=== PATIENT | male | born 1990 | race Caucasian/White ===

== ENCOUNTER 2018-08-16 23:56 | Emergency (ER) | payer MEDICAID ==
[~2018-08-16] VITALS: Ht 185.4 cm; Wt 77.1 kg
--- NOTE | 2018-08-16 23:57 | NUR ---
ED Nurse Note: Received report. Pt brought in by [employer] from home, called by friends stating pt is lethargic and hard to arouse and needing assistance to walk. No crime committed. No hold in place.
[2018-08-17] VITALS: BP 135/88
[2018-08-17] MEDS: Naloxone 1mg/ml 2ml IVP ONE (00:24)
[2018-08-17 00:30] VITALS: BP 133/76
--- NOTE | 2018-08-17 00:30 | NUR ---
ED Nurse Note: Pt po [facility] and immediately awoken with pupils dilated size 5mm and ST at HR of 120. He started shivering and denying taking any meds. Labs and urine sent; awaiting results. MD aware of pt's response.
[2018-08-17 00:33] LABS: APPEARANCE,URINE CLEAR; BILIRUBIN, URINE NEGATIVE (NEGATIVE); COLOR,URINE PALE YELLOW; GLUCOSE, URINE (UA) NEGATIVE (NEGATIVE); KETONES,URINE 1+ (NEGATIVE); LEUKOCYTE ESTERASE ,URINE NEGATIVE (NEGATIVE); NITRITE,URINE NEGATIVE (NEGATIVE); PH,URINE 6 (4.5-8.0); UROBILINOGEN,URINE NORMAL MG/DL (0.0-1.0)
[2018-08-17 00:36] LABS: PROTEIN,URINE NEGATIVE (NEGATIVE)
[2018-08-17 00:47] LABS: BASOPHILS % (AUTO) 1.6 % (0.0-2.0); EOSINOPHILS % (AUTO) 1.1 % (0.0-3.0); HEMATOCRIT 49.9 % (42.0-52.0); HEMOGLOBIN 16.6 G/DL (14.2-18.0); LYMPHOCYTES % (AUTO) 23.1 % (20.0-45.0); MEAN CORPUSCULAR VOLUME 90 FL (80-99); MONOCYTES % (AUTO) 9.9 % (1.0-10.0); NEUTROPHILS % (AUTO) 64.3 % (45.0-75.0); PLATELET COUNT 263 K/UL (150-450); RED BLOOD COUNT 5.52 M/UL (4.70-6.10); RED CELL DISTRIBUTION WIDTH 11.6 % (11.6-14.8)
[2018-08-17 00:56] LABS: ANION GAP 8 mmol/L (5-15); BLOOD UREA NITROGEN 13 mg/dL (7-18); CALCIUM 9.3 MG/DL (8.5-10.1); CARBON DIOXIDE 32 MMOL/L (21-32); CHLORIDE 102 MMOL/L (98-107); CREATININE 1.4 MG/DL (0.55-1.30); POTASSIUM 3.7 MMOL/L (3.5-5.1); SODIUM 142 MMOL/L (136-145)
[2018-08-17 01:00] VITALS: BP 133/98
[2018-08-17 01:00] LABS: ALANINE AMINOTRANSFERASE 16 U/L (12-78); ALBUMIN 4.4 G/DL (3.4-5.0); ALBUMIN/GLOBULIN RATIO 1.1 (1.0-2.7); ALKALINE PHOSPHATASE 75 U/L (46-116); ASPARTATE AMINO TRANSFERASE 15 U/L (15-37); BILIRUBIN,TOTAL 0.2 MG/DL (0.2-1.0)
--- NOTE | 2018-08-17 01:03 | Emergency Room Report ---
History of Present Illness General Chief Complaint: Altered Level of Consciousness Source: EMS Present Illness HPI Is an approximately 25-year-old male initially came in as a Joshua Weir. He presents with chief complaint of overdose. Friend called 911 because he was unresponsive. Per EMS, he was reported to have overdose on benzodiazepine and marijuana. He was lethargic and unable to give any history. EMS did not give him any medication. Per EMS, friend said there was no suicidal attempt. No other history can be obtained from this patient because she is not responsive. Allergies: Coded Allergies: UNABLE TO ASSESS (Unverified , 08/16/18) Patient History Past Medical History: see triage record, old chart reviewed Past Surgical History: unable to obtain Social History: Reports: drug use Immunizations: other Reviewed Nursing Documentation: PMH: Agreed; PSxH: Agreed Nursing Documentation-PMH Past Medical History: No Stated History Review of Systems All Other Systems: limited - Secondary to altered mental status Physical Exam Vital Signs Date Time Temp Pulse Resp B/P (MAP) Pulse Ox O2 Delivery O2 Flow Rate FiO2 08/16/18 23:50 98.1 102 12 134/94 98 Room Air normal Sp02 EP Interpretation: reviewed, normal General Appearance: well appearing, no apparent distress, Stupor - Sonorous respiration Head: normocephalic, atraumatic Eyes: bilateral eye PERRL, bilateral eye EOMI, bilateral eye other - Pupil for millimeter and reactive ENT: normal pharynx Neck: full range of motion, supple, no meningismus Respiratory: chest non-tender, lungs clear, normal breath sounds Cardiovascular #1: regular rate, rhythm, no murmur Gastrointestinal: normal bowel sounds, non tender, no mass, no organomegaly, no bruit, non-distended Musculoskeletal: back normal, normal range of motion Neurologic: grossly normal Psychiatric: mood/affect normal Skin: warm/dry Medical Decision Making Diagnostic Impression: Primary Impression: Altered level of consciousness Additional Impression: Substance abuse ER Course Patient with drug overdose. Drug screen positive for amphetamine and marijuana. Negative opiate but he responded quickly to Narcan. Suspect the has some type of opiate that's not on our drug screen. We'll observe until clinical sobriety. No trauma to warrant x-ray or CT scan. Labs unremarkable. Last Vital Signs Date Time Temp Pulse Resp B/P (MAP) Pulse Ox O2 Delivery O2 Flow Rate FiO2 08/16/18 23:50 98.1 102 12 134/94 98 Room Air Status: improved Disposition: HOME, SELF-CARE Condition: Stable Scripts Unable to Obtain Active Prescriptions or Reported Meds Referrals: [facility],REFERR[facility] (PCP) Additional Instructions: Abstain from drug and alcohol. Follow-up in rehabilitation within a week. Return if worse. Ba Barroso MD Aug 17, 2018 01:03
--- NOTE | 2018-08-17 01:35 | NUR ---
ED Nurse Note: Pt in bed alseep snoring. Awoken when telling pt to starighten arm for IVF intake. He cooperated, then went back to sleep. No distress noted. VSS.
--- NOTE | 2018-08-17 02:45 | NUR ---
ED Nurse Note: pt sleeping on gurney, not in acute distress. pt still hooked on monitor with vital sign within normal limits. will continue to monitor.
[2018-08-17 02:46] VITALS: BP 127/77
[2018-08-17 05:30] VITALS: BP 105/72
[2018-08-17 05:58] VITALS: BP 105/72
--- NOTE | 2018-08-17 05:58 | NUR ---
ED Nurse Note: pt was cleared for discharge by brad. pt stated he feels good now now that his friend is here to pick him up. pt vss. aox4. pt denies pain. iv and id band removed. pt left with all belongings and on a steady gait. will continue to monitor,
== END 2018-08-17 05:58 | disposition home or self-care (01) ==
LOC: EDBD 23:56 → EMR 08-17 00:05 → EDBD 08-17 00:05 → EMR 08-17 05:58
DX: R41.82 Altered mental status, unspecified (principal); F12.10 Cannabis abuse, uncomplicated; F13.10 Sedative, hypnotic or anxiolytic abuse, uncomplicated
CPT/HCPCS: 36415; 80053; 80307; 80329; 81003; 82962; 85025; 96361; 96374; 99284; J2310